=== PATIENT | female | born 1970 | race Caucasian/White ===

== ENCOUNTER 2017-08-06 09:23 | Emergency (ER) | payer OTHER ==
[~2017-08-06] VITALS: Ht 160 cm; Wt 61.0 kg
[2017-08-06 12:54] LABS: CLARITY URINE CLEAR (CLEAR); COLOR URINE YELLOW (YELLOW); GLUCOSE URINE NEGATIVE (NEGATIVE); KETONES URINE NEGATIVE (NEGATIVE); LEUKOCYTE ESTERASE URINE NEGATIVE (NEGATIVE); NITRITE URINE NEGATIVE (NEGATIVE); OCCULT BLOOD URINE TRACE (NEGATIVE); PH URINE 6.5 (4.5-8.0); PROTEIN URINE 2+ (NEGATIVE); SPECIFIC GRAVITY URINE 1.009 (1.005-1.030); UROBILINOGEN URINE 0.2 E.U./dL (0.2-1.0)
[2017-08-06] MEDS ORDERED: LORAZEPAM 0.5MG TABLET PO ONE (13:00)
[2017-08-06] MEDS ORDERED: IBUPROFEN 800MG TABLET PO ONE (13:45)
[2017-08-06 16:52] VITALS: BP 123/64
== END 2017-08-06 17:14 | disposition home or self-care (01) ==
LOC: ER 10:26
DX: M54.5 Low back pain (principal); Z90.710 Acquired absence of both cervix and uterus
CPT/HCPCS: 74176; 81001; 81025; 82542; 99285